=== PATIENT | male | born 1955 | race Two or more races ===

== ENCOUNTER 2018-10-24 20:14 | Emergency (ER) | payer OTHER ==
[~2018-10-24] VITALS: Ht 175.3 cm; Wt 70.3 kg
[~2018-10-24 20:14] MED LIST: IRBESARTAN-HCT1 EACH PO; LEVOXYL25 MCG PO
[2018-10-24] MEDS ORDERED: CRESTOR10 MG (20:32)
[2018-10-25] MEDS ORDERED: CIPRO500 MG PO (03:02)
[2018-10-25] MEDS ORDERED: INTESTINEX680 M1 PO (03:02)
[2018-10-25] MEDS ORDERED: LEVSIN/SL0.125 MG PO (03:02)
== END 2018-10-25 05:07 | disposition home or self-care (01) ==
LOC: ER 20:14
DX: K57.90 Diverticulosis of intestine, part unspecified, without perforation or abscess without bleeding (principal); N20.0 Calculus of kidney; R10.32 Left lower quadrant pain

== ENCOUNTER → 2022-01-06 06:54 | Outpatient (CLI) | payer OTHER ==
[~2022-01-06 06:54] MED LIST changes: +CIPRO500 MG PO; +CRESTOR10 MG; +INTESTINEX680 M1 PO; +LEVSIN/SL0.125 MG PO
== END | disposition home or self-care (01) ==
LOC: LAB 06:54
PROVIDERS: ATTEND Internal Medicine Hematology & Oncology
DX: D50.8 Other iron deficiency anemias (principal); R79.9 Abnormal finding of blood chemistry, unspecified; I10 Essential (primary) hypertension; R74.02 Elevation of levels of lactic acid dehydrogenase [LDH]; K76.89 Other specified diseases of liver; D51.1 Vitamin B12 deficiency anemia due to selective vitamin B12 malabsorption with proteinuria; D68.59 Other primary thrombophilia; D68.61 Antiphospholipid syndrome; E72.12 Methylenetetrahydrofolate reductase deficiency; C90.00 Multiple myeloma not having achieved remission; D47.2 Monoclonal gammopathy; E85.89 Other amyloidosis; E72.11 Homocystinuria

== ENCOUNTER 2022-02-18 07:36 | Outpatient (CLI) | payer OTHER | END 2022-02-18 07:49 | disposition home or self-care (01) | LOC: LAB 07:36 | DX: D64.9 Anemia, unspecified (principal); I11.9 Hypertensive heart disease without heart failure; E03.1 Congenital hypothyroidism without goiter; E78.1 Pure hyperglyceridemia ==

== ENCOUNTER 2022-04-25 07:07 | Outpatient (CLI) | payer OTHER | END 2022-04-25 07:08 | disposition home or self-care (01) | LOC: NUCLEAR 07:07 | PROVIDERS: ATTEND Internal Medicine | DX: I11.9 Hypertensive heart disease without heart failure (principal) ==

== ENCOUNTER → 2022-06-08 | Outpatient (CLI) | payer OTHER | END | disposition home or self-care (01) | LOC: SONOGRAMA 09:04 | PROVIDERS: ATTEND Pathology Anatomic Pathology & Clinical Pathology | DX: D34 Benign neoplasm of thyroid gland (principal); E04.9 Nontoxic goiter, unspecified; E03.9 Hypothyroidism, unspecified ==

== ENCOUNTER 2022-09-13 08:13 | Outpatient (CLI) | payer OTHER | END 2022-09-13 08:29 | disposition home or self-care (01) | LOC: LAB 08:13 | PROVIDERS: ATTEND Internal Medicine Hematology & Oncology | DX: D50.8 Other iron deficiency anemias (principal); R79.9 Abnormal finding of blood chemistry, unspecified; I10 Essential (primary) hypertension; R74.02 Elevation of levels of lactic acid dehydrogenase [LDH]; K76.89 Other specified diseases of liver; E72.12 Methylenetetrahydrofolate reductase deficiency; D68.61 Antiphospholipid syndrome; D47.2 Monoclonal gammopathy; C90.00 Multiple myeloma not having achieved remission; D68.59 Other primary thrombophilia ==

== ENCOUNTER 2023-03-12 07:51 | Outpatient (CLI) | payer OTHER ==
[2023-03-12 09:24] LABS: HEMATOCRIT 38.7 % (39.0-48.0); HEMOGLOBIN 13.1 g/dL (13-16.00); MEAN CELL VOLUME 83.7 fL (80.0-100.00); MEAN CORPUSCULAR HEMOGLOBIN 28.3 pg (27.00-32.0); MEAN CORPUSCULAR HGB CONC 33.8 g/dl (32.0-36.0); PLATELET COUNT 195 K/uL (150-450); RED BLOOD COUNT 4.62 M/uL (4.00-6.00); RED CELL DISTRIBUTION WIDTH 15.3 % (11.5-14.5)
[2023-03-12 09:35] LABS: ERYTHROCYTE SEDIMENTATION RATE 11 mm/hr
[2023-03-12 09:36] LABS: URINE APPEARANCE Clear; URINE BILIRRUBIN Negative (NEGATIVE); URINE BLOOD Negative; URINE COLOR Yellow; URINE GLUCOSE Negative (NEGATIVE); URINE LEUKOCYTE Negative; URINE NITRATE Negative; URINE PROTEIN 30 (NEGATIVE); URINE UROBILINOGEN 0.2 E.U./dl
[2023-03-12 09:40] LABS: URINE WBC 2.2 uL (0.0-23.2)
[2023-03-12 09:52] LABS: URINE BACTERIA 3.7 uL (0.0-1933); URINE RBC 0.2 uL (0.0-20.8)
[2023-03-12 10:24] LABS: ALBUMIN 3.9 gm/dL (3.4-5.0); BILIRUBIN TOTAL 1.23 mg/dL (0.3-1.2); CALCIUM 8.7 mg/dL (8.5-10.1); CHOL HDL RATIO 2.2 (0-5.0); CREATININE SERUM 1.27 mg/dL (0.70-1.30); GFR 56.74; PHOSPHOROUS 4.1 mg/dL (2.5-4.9); POTASSIUM 4.55 mEq/L (3.5-5.1); PROSTATIC SPECIFIC ANTIGEN 1.71 NG/ML (0.010-4.00); TOTAL PROTEIN 6.9 gm/dL (6.4-8.2)
[2023-03-12 10:46] LABS: TSH 0.175 uIU/mL (0.358-3.74)
[2023-03-12 11:02] LABS: MANUAL PLATELET COUNT 342
[2023-03-12 11:21] LABS: PLATELET ESTIMATE NORMAL (NORMAL)
[2023-03-12 11:54] LABS: FOLIC ACID > 20.00 ng/ml (4.78-20); VITAMIN D3 25 HYDROXY 96.07 ng/ml (30-120)
[2023-03-12 14:01] LABS: URIC ACID 4.9 mg/dL (3.5-8.5)
== END 2023-03-12 07:53 | disposition home or self-care (01) ==
LOC: LAB 07:51
PROVIDERS: ATTEND Internal Medicine Hematology & Oncology
DX: E03.9 Hypothyroidism, unspecified (principal); E72.11 Homocystinuria; I10 Essential (primary) hypertension; E85.4 Organ-limited amyloidosis; E55.9 Vitamin D deficiency, unspecified

== ENCOUNTER 2023-03-12 09:28 | Outpatient (CLI) | payer OTHER | END 2023-03-12 09:36 | disposition home or self-care (01) | LOC: SONOGRAMA 09:28 | PROVIDERS: ATTEND Internal Medicine | DX: E04.2 Nontoxic multinodular goiter (principal) ==

== ENCOUNTER 2023-11-14 09:48 | Emergency (ER) | payer OTHER ==
[~2023-11-14] VITALS: Ht 175.3 cm; Wt 63.5 kg
[2023-11-14] MEDS ORDERED: MECLIZINE HCL 25 MG TABLET PO STA (11:03)
[2023-11-14] MEDS ORDERED: MECLIZINE HCL 25 MG TABLET PO ONE (11:14)
== END 2023-11-14 11:19 | disposition home or self-care (01) ==
LOC: ER 09:50
DX: R42 Dizziness and giddiness (principal)

== ENCOUNTER 2024-04-17 10:46 | Outpatient (CLI) | payer OTHER | END 2024-04-17 10:50 | disposition home or self-care (01) | LOC: SONOGRAMA 10:46 | PROVIDERS: ATTEND Internal Medicine | DX: E04.2 Nontoxic multinodular goiter (principal) ==

== ENCOUNTER 2024-09-22 07:17 | Outpatient (CLI) | payer OTHER | END 2024-09-22 07:20 | disposition home or self-care (01) | LOC: SONOGRAMA 07:17 | PROVIDERS: ATTEND Internal Medicine | DX: N40.1 Benign prostatic hyperplasia with lower urinary tract symptoms (principal) ==